=== PATIENT | female | born 1990 | race Caucasian/White ===

== ENCOUNTER → 2017-08-17 | Outpatient (CLI) | payer BC, OTHER ==
[~2017-08-17] VITALS: Ht 160 cm; Wt 78.0 kg
[~2017-08-17] MED LIST: PRENATAL TABLE1 EAC3 PO
[2017-08-17 09:06] VITALS: BP 126/59
== END | disposition home or self-care (01) ==
LOC: IVINF 08:30
DX: Z34.83 Encounter for supervision of other normal pregnancy, third trimester (principal); Z31.82 Encounter for Rh incompatibility status; Z3A.28 28 weeks gestation of pregnancy; Z67.91 Unspecified blood type, Rh negative
CPT/HCPCS: 96372; J2790